=== PATIENT | female | born 2000 | race Caucasian/White ===

== ENCOUNTER 2023-08-13 15:11 | Emergency (ER) | payer MEDICAID ==
[~2023-08-13] VITALS: Ht 160 cm; Wt 75.0 kg
[2023-08-13 15:33] VITALS: O2SAT 100
[2023-08-13 17:01] LABS: BASOPHILS % 0.4 % (0.0-2.0); HEMATOCRIT. 42.8 % (36.0-48.0); HEMOGLOBIN. 14.8 g/dL (12.0-16.0); LYMPHOCYTES % 35.9 % (20.0-50.0); MEAN CORPUSCULAR HGB CONC 34.5 g/dL (31.0-37.0); MEAN CORPUSCULAR VOLUME 87.2 fL (81.0-99.0); MEAN PLATELET VOLUME 8.5 fl (7.4-10.4); MONOCYTES % 8.5 % (2.0-8.0); NEUTROPHILS % 53.2 % (40.0-76.0); PLATELET 284 x1000/uL (130-400); RED BLOOD CELL COUNT 4.91 mill/uL (4.2-5.4); WHITE BLOOD COUNT 8.2 x1000/uL (4.5-11.0)
[2023-08-13 17:09] LABS: CHLORIDE 103 mEq/L (98-107); POTASSIUM 3.6 mEq/L (3.5-5.1); SODIUM 138 mEq/L (136-145)
[2023-08-13 17:10] LABS: CALCIUM 9.5 mg/dL (8.7-10.4); CARBON DIOXIDE 28 mEq/L (21-32)
[2023-08-13 17:15] LABS: CLARITY URINE TURBID (CLEAR); COLOR URINE ORANGE (YELLOW); GLUCOSE URINE TRACE (NEGATIVE); KETONES URINE NEGATIVE (NEGATIVE); LEUKOCYTE ESTERASE URINE TRACE (NEGATIVE); NITRITE URINE NEGATIVE (NEGATIVE); OCCULT BLOOD URINE 3+ (NEGATIVE); PROTEIN URINE TRACE (NEGATIVE); SPECIFIC GRAVITY URINE 1.016 (1.005-1.030)
[2023-08-13 17:15] LABS: CREATININE 0.6 mg/dL (0.6-1.0); GLUCOSE 134 mg/dL (70-105); UREA NITROGEN BLOOD 9 mg/dL (9-23)
[2023-08-13 17:20] LABS: HCG SCREEN NEGATIVE
[2023-08-13 17:21] LABS: B-HCG QUANTITATIVE < 1 mIU/mL (<3)
[2023-08-13 17:42] LABS: WBC URINE 0-2 /hpf (0-2)
[2023-08-13 17:43] LABS: AMORPHOUS SEDIMENT URINE 3+ /lpf; BACTERIA URINE 1+; RBC URINE TNTC /hpf (0-2); SQUAMOUS EPITHELIAL CELL URINE 3+ /lpf (RARE/1+)
[2023-08-13 18:21] VITALS: BP 110/64; PULSE 69; RESP 18; TEMP 97.8
== END 2023-08-13 18:23 | disposition home or self-care (01) ==
LOC: ER 15:11
DX: O02.1 Missed abortion (principal); O46.91 Antepartum hemorrhage, unspecified, first trimester; Z3A.12 12 weeks gestation of pregnancy
CPT/HCPCS: 36415; 76830; 76856; 80048; 81003; 84702; 84703; 85025; 86850; 86900; 99284

== ENCOUNTER 2023-10-20 15:10 | Emergency (ER) | payer MEDICAID, OTHER ==
[~2023-10-20] VITALS: Ht 157.5 cm; Wt 66.0 kg
[2023-10-20 15:25] VITALS: O2SAT 99
[2023-10-20] MEDS ORDERED: IBUPROFEN 400MG TABLET PO ONE (16:30)
[2023-10-20] MEDS ORDERED: IBUP-2029 MT (18:16)
[2023-10-20] MEDS ORDERED: METH-653 MT (18:16)
[2023-10-20] MEDS: IBUPROFEN 400MG TABLET PO NR (18:52)
[2023-10-20 18:55] VITALS: BP 111/52; PULSE 68; RESP 18; TEMP 98.7
== END 2023-10-20 18:50 | disposition home or self-care (01) ==
LOC: ER 15:10
DX: S29.012A Strain of muscle and tendon of back wall of thorax, initial encounter (principal); X58.XXXA Exposure to other specified factors, initial encounter; Y93.89 Activity, other specified; Y92.89 Other specified places as the place of occurrence of the external cause; Y99.8 Other external cause status
CPT/HCPCS: 73030; 99283